=== PATIENT | male | born 1955 | race American Indian/Alaskan Native ===

== ENCOUNTER 2017-10-17 02:41 | Inpatient (IN) | payer OTHER ==
--- NOTE | 2017-10-17 02:52 | C.PDOC ---
History Of Present Illness The patient is brought to the ED by EMS for evaluation of altered mental status. Patient was found walking on the street and appeared confused. Patient denies any complaints at this [facility]ber[place]. Unable to obtain additional history due to patient's clinical condition. Time Seen by Provider: 10/17/17 02:52 Chief Complaint (Nursing): Altered Mental Status History Per: Patient, EMS History/Exam Limitations: Clinical Condition Onset/Duration Of Symptoms: Unknown Onset Of Symptoms: Cannot Confirm Onset Current Symptoms Are (Timing): Still Present Usual Baseline: Unknown Exacerbating Factor(s): Unknown Severity: None Pain Scale Rating Of: 0 Recent travel outside of the [place]: No Additional History Per: Patient, EMS Past Medical History Reviewed: Historical Data, Nursing Documentation, Vital Signs Vital Signs: Last Vital Signs Temp 97.3 F L 10/17/17 02:45 Pulse 64 10/17/17 02:45 Resp 16 10/17/17 02:45 BP 167/72 H 10/17/17 02:45 Pulse Ox 100 10/17/17 03:52 - Medical History PMH: No Chronic Diseases Surgical History: No Surg Hx Family History: States: Unknown Family Hx - Social History Hx Alcohol Use: No Hx Substance Use: No Review Of Systems Review Of Systems: ROS cannot be obtained secondary to pt's inabilty to answer questions. Physical Exam - Physical Exam Appears: Non-toxic, No Acute Distress, Other (confused ) Skin: Warm, Dry Head: Normacephalic Eye(s): bilateral: Normal Inspection Oral Mucosa: Moist Neck: Supple Chest: Symmetrical, No Deformity, No Tenderness Cardiovascular: Rhythm Regular, No Murmur Respiratory: No Rales, No Rhonchi, No Wheezing Extremity: Normal ROM, Capillary Refill (less than 2 seconds ) Neurological/Psych: Other (alert and oriented x2) ED Course And Treatment - Laboratory Results Result Diagrams: 10/17/17 03:19 10/17/17 03:19 ECG: Interpreted By Me, Viewed By Me ECG Rhythm: Sinus Rhythm (54), Nonspecific Changes O2 Sat by Pulse Oximetry: 100 (on RA) Pulse Ox Interpretation: Normal - Radiology CXR: Interpreted by Me, Viewed By Me CXR Interpretation: Yes: COPD. No: Infiltrates, Fracture, Pnemothorax Progress Note: Bloodwork, urinalysis, CXR, CT Head, EKG ordered and reviewed. IV Fluids administered. Disposition Discussed With .: Christ Stiles Comment: accepted the pt on his service and took over the care at 5:30AM Doctor Will See Patient In The: ED Counseled Patient/Family Regarding: Studies Performed, Diagnosis - Disposition Disposition: HOSPITALIZED Disposition Time: 02:52 Condition: FAIR Forms: [facility] (Croatian) - POA Present On Arrival: None - Clinical Impression Clinical Impression: Change in mental status - Scribe Statement The provider has reviewed the documentation as recorded by the Scribe (Janine Wylie) Provider Attestation: All medical record entries made by the Scribe were at my direction and personally dictated by me. I have reviewed the chart and agree that the record accurately reflects my personal performance of the history, physical exam, medical decision making, and the department course for this patient. I have also personally directed, reviewed, and agree with the discharge instructions and disposition. Decision To Admit - Pt Status Changed To: Hospital Disposition Of: Inpatient - Admit Certification Admit to Inpatient:: After my assessment, the patient will require hospitalization for at least two midnights. This is because of the severity of symptoms shown, intensity of services needed, and/or the medical risk in this patient being treated as an outpatient. - InPatient: Physician Admission Certification:: After my assessment, the patient will require hospitalization for at least two midnights. This is because of the severity of symptoms shown, intensity of services needed, and/or the medical risk in this patient being treated as an outpatient. - . Bed Request Type: Regular Admitting Physician: Christ Stiles Patient Diagnosis: Change in mental status
[2017-10-17 03:34] LABS: ALB/GLOB RATIO 1.2 (1.0-2.1); ALBUMIN 4.4 g/dL (3.5-5.0); BASO % 0.6 % (0.0-2.0); CALCIUM 9.6 mg/dl (8.6-10.4); EOS % 0.1 % (0.0-4.0); GFR AFRICAN-AMERICAN > 60; GFR NON-AFRICAN AMERICAN > 60; LYMPH # 0.9 K/uL (1.0-4.3); LYMPH % 17.4 % (20.0-40.0); MEAN CELL VOLUME 91.1 fL (80.0-94.0); MEAN CORPUSCULAR HEMOGLOBIN 31.8 pg (27.0-31.0); MEAN CORPUSCULAR HGB CONC 34.9 g/dL (33.0-37.0); MEAN PLATELET VOLUME 7.2 fL (7.2-11.7); MONO # 0.4 K/uL (0.0-0.8); MONO % 6.8 % (0.0-10.0); NEUT % 75.1 % (50.0-75.0); NRBC % 0.1 % (0.0-2.0); RBC 4.71 Mil/uL (4.40-5.90); RED CELL DISTRIBUTION WIDTH 13.5 % (11.5-14.5); WHITE BLOOD COUNT 5.4 K/uL (4.8-10.8)
[2017-10-17 03:44] LABS: ALT/SGPT 38 U/L (21-72); AST/SGOT 95 U/L (17-59); BLOOD UREA NITROGEN 21 mg/dL (9-20)
[2017-10-17 04:01] LABS: INR 1.3; PROTHROMBIN TIME 14.4 SECONDS (9.7-12.2)
[2017-10-17 04:05] LABS: VENOUS BLOOD GAS BASE EXCESS -2.8 mmol/L (0.0-2.0); VENOUS BLOOD GAS PCO2 44 mmHg (40-60); VENOUS BLOOD GAS PO2 29 mm/Hg (30-55); VENOUS BLOOD PH 7.33 (7.32-7.43)
--- NOTE | 2017-10-17 04:37 | CT ---
EXAM: CT Head Without Intravenous Contrast CLINICAL HISTORY: 62 years old, male; Pain; Headache and other: R/O bleed TECHNIQUE: Axial computed tomography images of the head/brain without intravenous contrast. All CT scans at this facility use one or more dose reduction techniques, viz.: automated exposure control; ma/kV adjustment per patient size (including targeted exams where dose is matched to indication; i.e. head); or iterative reconstruction technique. 603 images are submitted.Sagittal , axial and coronal MPR reformatted images are submitted. Axial images are submitted in brain and bone windows. COMPARISON: No relevant prior studies available. FINDINGS: Brain: Cerebral and cerebellar volume loss. Patchy hypodensity is seen in the periventricular and subcortical white matter. A cavum septum pellucidum and cavum septum vergae. No hemorrhage. Ventricles: Unremarkable. No ventriculomegaly. Bones/joints: Unremarkable. No acute fracture. Soft tissues: Unremarkable. Sinuses: Unremarkable. No acute sinusitis. Mastoid air cells: Unremarkable. No mastoid effusion. Orbits: The globe and lens are intact. IMPRESSION: No evidence of an acute intracranial hemorrhage, midline shift or mass effect is identified.
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
[2017-10-17 06:58] LABS: URINE BILIRUBIN NEGATIVE (NEGATIVE); URINE BLOOD NEGATIVE (NEGATIVE); URINE CLARITY Clear (Clear); URINE COLOR Yellow (YELLOW); URINE GLUCOSE (UA) NORMAL (Normal); URINE LEUKOCYTE ESTERASE NEG Leu/uL (Negative); URINE PROTEIN NEGATIVE (NEGATIVE)
[2017-10-17 07:09] LABS: BARBITURATES, UR NEGATIVE (NEGATIVE); BENZODIAZEPINES, UR NEGATIVE (NEGATIVE); OPIATES, UR NEGATIVE (NEGATIVE); PHENCYCLIDINE, UR NEGATIVE (NEGATIVE)
--- NOTE | 2017-10-17 08:08 | RAD ---
HISTORY: SOB COMPARISON: None TECHNIQUE: Chest one view . FINDINGS: LUNGS: No focal consolidation is seen. PLEURA: No pleural effusion is identified. CARDIOVASCULAR: Heart size is within normal limits. OSSEOUS STRUCTURES: No acute fracture identified. VISUALIZED UPPER ABDOMEN: Unremarkable. OTHER FINDINGS: None. IMPRESSION: No acute cardiopulmonary process seen.
[2017-10-17] MEDS: Potassium Chloride 20 MEQ in Dextrose 5%/0.45% NS 1,000 ML IV SCH ×3 (08:23→18:57)
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
[2017-10-17] MEDS: Multiple Vitamins Tab PO SCH (12:13)
[2017-10-17] MEDS: Enoxaparin 40 mg Syringe SC SCH (12:14)
[2017-10-17] MEDS: Sodium Chloride 0.9% 1,000 ML IV SCH ×2 (16:45→22:34)
--- NOTE | 2017-10-17 18:19 | CP.PCM.DIS ---
Provider - Provider Date of Admission: 10/17/17 06:12 Attending physician: Christ Stiles MD Primary care physician: None Consults: None Time Spent in preparation of Discharge (in minutes): 40 Hospital Course - Lab Results Lab Results: Most Recent Lab Values WBC 5.4 K/uL (4.8-10.8) 10/17/17 03:19 RBC 4.71 Mil/uL (4.40-5.90) 10/17/17 03:19 Hgb 15.0 g/dL (12.0-18.0) 10/17/17 03:19 Hct 42.9 % (35.0-51.0) 10/17/17 03:19 MCV 91.1 fL (80.0-94.0) 10/17/17 03:19 MCH 31.8 pg (27.0-31.0) H 10/17/17 03:19 MCHC 34.9 g/dL (33.0-37.0) 10/17/17 03:19 RDW 13.5 % (11.5-14.5) 10/17/17 03:19 Plt Count 250 K/uL (130-400) 10/17/17 03:19 MPV 7.2 fL (7.2-11.7) 10/17/17 03:19 Neut % (Auto) 75.1 % (50.0-75.0) H 10/17/17 03:19 Lymph % (Auto) 17.4 % (20.0-40.0) L 10/17/17 03:19 Mercer % (Auto) 6.8 % (0.0-10.0) 10/17/17 03:19 Eos % (Auto) 0.1 % (0.0-4.0) 10/17/17 03:19 Baso % (Auto) 0.6 % (0.0-2.0) 10/17/17 03:19 Neut # (Auto) 4.0 K/uL (1.8-7.0) 10/17/17 03:19 Lymph # (Auto) 0.9 K/uL (1.0-4.3) L 10/17/17 03:19 Mercer # (Auto) 0.4 K/uL (0.0-0.8) 10/17/17 03:19 Eos # (Auto) 0.0 K/uL (0.0-0.7) 10/17/17 03:19 Baso # (Auto) 0.0 K/uL (0.0-0.2) 10/17/17 03:19 PT 14.4 SECONDS (9.7-12.2) H 10/17/17 03:50 INR 1.3 10/17/17 03:50 APTT 40 SECONDS (21-34) H 10/17/17 03:50 pO2 29 mm/Hg (30-55) L 10/17/17 03:56 VBG pH 7.33 (7.32-7.43) 10/17/17 03:56 VBG pCO2 44 mmHg (40-60) 10/17/17 03:56 VBG HCO3 21.4 mmol/L 10/17/17 03:56 VBG Total CO2 24.6 mmol/L (22-28) 10/17/17 03:56 VBG O2 Sat (Calc) 51.8 % (40-65) 10/17/17 03:56 VBG Base Excess -2.8 mmol/L (0.0-2.0) L 10/17/17 03:56 VBG Potassium 3.5 mmol/L (3.6-5.2) L 10/17/17 03:56 Sodium 138.0 mmol/l (132-148) 10/17/17 03:56 Chloride 106.0 mmol/L (98-107) 10/17/17 03:56 Glucose 85 mg/dl (75-110) 10/17/17 03:56 Lactate 1.3 mmol/L (0.7-2.1) 10/17/17 03:56 Crit Value Called To Dr gao 10/17/17 03:56 Crit Value Called By Esther joseph rt 10/17/17 03:56 Crit Value Read Back Y 10/17/17 03:56 Blood Gas Notified Time 407 10/17/17 03:56 Sodium 142 mmol/L (132-148) 10/17/17 03:19 Potassium 4.1 mmol/L (3.6-5.2) 10/17/17 03:19 Chloride 101 mmol/L (98-107) 10/17/17 03:19 Carbon Dioxide 19 mmol/L (22-30) L 10/17/17 03:19 Anion Gap 25 (10-20) H 10/17/17 03:19 BUN 21 mg/dL (9-20) H 10/17/17 03:19 Creatinine 0.8 mg/dL (0.8-1.5) 10/17/17 03:19 Est GFR ( Amer) > 60 10/17/17 03:19 Est GFR (Non-Af Amer) > 60 10/17/17 03:19 POC Glucose (mg/dL) 74 mg/dL (65-110) 10/17/17 02:56 Random Glucose 93 mg/dL (75-110) 10/17/17 03:19 Calcium 9.6 mg/dl (8.6-10.4) 10/17/17 03:19 Total Bilirubin 1.8 mg/dL (0.2-1.3) H 10/17/17 03:19 AST 95 U/L (17-59) H 10/17/17 03:19 ALT 38 U/L (21-72) 10/17/17 03:19 Alkaline Phosphatase 96 U/L (38-126) 10/17/17 03:19 Total Protein 8.1 g/dL (6.3-8.3) 10/17/17 03:19 Albumin 4.4 g/dL (3.5-5.0) 10/17/17 03:19 Globulin 3.7 gm/dL (2.2-3.9) 10/17/17 03:19 Albumin/Globulin Ratio 1.2 (1.0-2.1) 10/17/17 03:19 Venous Blood Potassium 3.5 mmol/L (3.6-5.2) L 10/17/17 03:56 Urine Color Yellow (YELLOW) 10/17/17 06:48 Urine Clarity Clear (Clear) 10/17/17 06:48 Urine pH 5.0 (5.0-8.0) 10/17/17 06:48 Ur Specific [place] 1.027 (1.003-1.030) 10/17/17 06:48 Urine Protein Negative mg/dL (NEGATIVE) 10/17/17 06:48 Urine Glucose (UA) Normal mg/dL (Normal) 10/17/17 06:48 Urine Ketones 1+ mg/dL (NEGATIVE) H 10/17/17 06:48 Urine Blood Negative (NEGATIVE) 10/17/17 06:48 Urine Nitrate Negative (NEGATIVE) 10/17/17 06:48 Urine Bilirubin Negative (NEGATIVE) 10/17/17 06:48 Urine Urobilinogen 2.0 mg/dL (0.2-1.0) 10/17/17 06:48 Ur Leukocyte Esterase Neg Rudy/uL (Negative) 10/17/17 06:48 Urine WBC (Auto) 3 /hpf (0-5) 10/17/17 06:48 Urine RBC (Auto) 1 /hpf (0-3) 10/17/17 06:48 Urine Opiates Screen Negative (NEGATIVE) 10/17/17 06:48 Urine Methadone Screen Negative (NEGATIVE) 10/17/17 06:48 Ur Barbiturates Screen Negative (NEGATIVE) 10/17/17 06:48 Ur Phencyclidine Scrn Negative (NEGATIVE) 10/17/17 06:48 Ur Amphetamines Screen Negative (NEGATIVE) 10/17/17 06:48 U Benzodiazepines Scrn Negative (NEGATIVE) 10/17/17 06:48 U Oth Cocaine Metabols Negative (NEGATIVE) 10/17/17 06:48 U Cannabinoids Screen Negative (NEGATIVE) 10/17/17 06:48 Alcohol, Quantitative < 10 mg/dl (0-10) 10/17/17 03:30 RPR Nonreactive (NONREACTIVE) 10/17/17 11:43 HIV 1&2 Antibody Screen Negative (NEGATIVE) 10/17/17 11:43 - Hospital Course Hospital Course: Progress note for Dr. Wylie Patient states he is an [place] Citizen and moved from [place] to [place] in 1994 , move to [place] many years ago and that his family is in [place]. Patient is unable to state how he came to [place], but said he went to stay with his friend and then his final destination is [place] where his sons live. He was planning to fly from [place] to [place]. Patient is sitting in bed with his phone that is starting to get charged upon visit for interview. Patient currently denies fever, chills, nausea, vomiting, diarrhea. Patient is unable to state phone numbers of his sons, but says his daughter lives in [place] ([facility]) We are waiting for his phone to charge to contact family members. Per Son Kristina in [place], Patient was living in [place] for a year and came to the [place] to fly back to [place] to be with his . Patient was supposed to be picked up at the airport by a friend near the hospital. Patient's will call back the hospital with contact information about the family he was supposed to be picked up by to be sent home. Patient is still unable to answer some questions and will try to answer the best way he can, but shows some frustration at not being able to know some of the answers (ie: street name of family friend, hospital name, this state). Please refer to Case Management notes. Spoke with Computed Tomography Technologist Kenny who was able to contact patient Daughter who is on her way to the hospital from [place] to grain picker patient to take him to airport for flight to his home in [place] where he will be living with his . Sha Wylie D.O. Discharge Exam - Head Exam Head Exam: ATRAUMATIC, NORMAL INSPECTION, NORMOCEPHALIC Discharge Plan - Follow Up Plan Condition: FAIR Disposition: HOME/ ROUTINE
[2017-10-18] MEDS: Potassium Chloride 20 MEQ in Dextrose 5%/0.45% NS 1,000 ML IV SCH ×2 (06:30→11:23)
[2017-10-18 07:48] VITALS: TEMP 98.6
[2017-10-18] MEDS ORDERED: Pneumococcal 23-Valent Vaccine IM ONE (10:00)
[2017-10-18] MEDS: Enoxaparin 40 mg Syringe SC SCH (11:00)
[2017-10-18] MEDS: Multiple Vitamins Tab PO SCH (11:00)
--- NOTE | 2017-10-18 13:11 | CARD ---
APPROVED REPORT EKG Measurement Heart [id number] <Conclusion> Sinus bradycardia Otherwise normal ECG
[2017-10-18 16:44] VITALS: BP 155/88; PULSE 63; RESP 20; O2SAT 100
--- NOTE | 2017-10-18 19:53 | CP.PCM.PCO ---
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
== END 2017-10-18 20:12 | disposition home or self-care (01) | DRG 948 ==
LOC: C.ER 02:41 → C.3T 06:12
PROVIDERS: ADMIT Internal Medicine; ATTEND Internal Medicine
DX: R41.82 Altered mental status, unspecified (principal)